=== PATIENT | female | born 1955 | race Two or more races ===

== ENCOUNTER → 2016-06-25 | Outpatient (CLI) | payer OTHER ==
--- NOTE | 2016-06-25 16:51 | DX ---
Left Foot Series 3 views weight-bearing History: Left foot pain for one day. Findings: Osseous structures are intact without fracture. Joint spaces are normal. Soft tissues are n ormal. There is a small plantar calcaneal spur. Impression: Small plantar calcaneal spur. Otherwise, normal foot series.
== END ==
LOC: BMCIMAGING 16:10
PROVIDERS: ATTEND Podiatrist Foot & Ankle Surgery
DX: M77.32 Calcaneal spur, left foot (principal)

== ENCOUNTER 2016-07-10 04:34 | Inpatient (IN) | payer OTHER ==
--- NOTE | 2016-07-10 04:47 | EDPHY ---
H & P Stated Complaint: LEFT LEG PAIN, DENIES TRAUMA HPI/ROS: HPI CHIEF COMPLAINT: Left ankle pain, severe HISTORY OF PRESENT ILLNESS: This patient very pleasant 61-year-old female denies any significant medical history specifically denies being diabetic, she presents to the emergency room with 10/10 left ankle pain and extreme pain with ankle movement. She tells me she has recently seen by her emergency operator Godwin Riley. she had an MRI of her ankle with a fluid collection in her anterior ankle she is placed on Augmentin the past 2 days for possible infection. She does tell me that the swelling of her foot has improved however still has exquisite left ankle tenderness which is not improved with her hydrocodone. She denies fever. She tells me she is unable to ambulate, and with any range of motion of her left ankle she has severe pain. Past Medical History: Denies significant medical history Past Surgical History: denies significant surgical history Social History: Denies use of drugs alcohol tobacco products Family History: Noncontributory ROS REVIEW OF SYSTEMS: A comprehensive 10 point review of systems is otherwise negative aside from elements mentioned in the history of present illness. Exam Constitutional triage nursing summary reviewed, vital signs reviewed, awake/ alert. Eyes normal conjunctivae and sclera, EOMI, PERRLA. HENT normal inspection, atraumatic, moist mucus membranes, no epistaxis, neck supple/ no meningismus, no raccoon eyes. Respiratory clear to auscultation bilaterally, normal breath sounds, no respiratory distress, no wheezing. Cardiovascular rate normal, regular rhythm, no murmur, no edema, distal pulses normal. Gastrointestinal soft, non-tender, no rebound, no guarding, normal bowel sounds, no distension, no pulsatile mass. Genitourinary no CVA tenderness. Musculoskeletal left lower extremity: ankle: exquisite tenderness, no crepitus, there is tenderness to palpation of the medial and lateral malleolus is also tenderness in the space between the Achilles and the lateral and medial malleolus. She is tender with light palpation. She is neurovascularly intact good cap refill, good pulse, good sensation. no midline vertebral tenderness, full range of motion, no calf swelling, no tenderness of extremities, no meningismus, good pulses, neurovascularly intact. Skin pink, warm, & dry, no rash, skin atraumatic. Neurologic awake, alert and oriented x 3, AAOx3, moves all 4 extremities equally, motor intact, sensory intact, CN II-XII intact, normal cerebellar, normal vision, normal speech. Psychiatric normal mood/affect. Heme/Lymph/Immune no lymphadenopathy. Differential Diagnosis: Includes but is not limited to in a particular order left ankle infection, joint infection, septic arthritis, osteomyelitis, fracture Medical Decision Making: This patient here in the emergency room had an IV established be medicated with IV pain medicine will check blood work including a CBC and inflammatory markers, I did speak with Dr. Warner who is her emergency operator requests that we repeat her MRI give her broad-spectrum antibiotics including IV vancomycin and admit her to the hospital where he will see her. He requested to be admitted to the hospitalist service. He also requested that Infectious Disease sees her. Re-evaluation: 0509: At this time I spoke with the hospitalist service Dr. Hunt agrees to admit this patient. The MRI has been ordered. Source: Patient - Personal History Current Tetanus/Diphtheria Vaccine: Yes Current Tetanus Diphtheria and Acellular Pertussis (TDAP): Yes - Medical/Surgical History Hx Asthma: No Hx Chronic Respiratory Disease: No Hx Diabetes: No Hx Cardiac Disease: No Hx Renal Disease: No Hx Cirrhosis: No Hx Alcoholism: No Hx HIV/AIDS: No Hx Splenectomy or Spleen Trauma: No Other PMH: C SECTION, CEE, BACK INJURY - Social History Smoking Status: Never smoked Constitutional: Initial Vital Signs Temperature (C) 36.6 C 07/10/16 04:36 Heart Rate 91 07/10/16 04:36 Respiratory Rate 18 07/10/16 04:36 Blood Pressure 117/82 H 07/10/16 04:36 O2 Sat (%) 96 07/10/16 04:36 O2 Delivery Mode Room Air Allergies/Adverse Reactions: moxifloxacin HCl [From Avelox] Allergy (Verified 07/10/16 04:40) ITCHING,CHEST TIGHTNESS Sulfa (Sulfonamide Antibiotics) [Sulfa(Sulfonamide Antibiotics)] Allergy ( Verified 07/10/16 04:40) ITCH Home Medications: Medication Instructions Recorded Ibuprofen [Motrin 200 mg (OTC)] 600 - 800 mg PO DAILY PRN 06/06/12 Loperamide HCl [Imodium 2 mg (OTC)] 2 mg PO DAILY PRN 06/06/12 Amoxicillin/Clavulanate Pot 875 mg PO BID 07/10/16 [Augmentin 875 MG TAB (*)] Bisacodyl [Dulcolax] 5 mg PO DAILY PRN 07/10/16 Calcium Carb W/Vit D [Calcium Carb 1,000 mg PO DAILY 07/10/16 W/Vit D 500/200 (*)] Estrogen,Con/M-Progest Acet 1 each PO DAILY 07/10/16 [Prempro 0.3 mg-1.5 mg Tablet] Hydrocodone/Acetaminophen [[place] 1 tab PO Q6 PRN 07/10/16 5/325 (*)] Sulindac 150 mg PO BIDMEAL 07/10/16 buPROPion XL [Wellbutrin Xl] 300 mg PO DAILY 07/10/16 Medical Decision Making - Data Points Medications Given: Discontinued Medications Sodium Chloride (Ns) 1,000 mls @ 0 mls/hr IV ONCE ONE PRN Reason: Wide Open Stop: 07/10/16 04:58 Last Admin: 07/10/16 05:15 Dose: 1,000 mls Vancomycin/Sodium Chloride (Vancomycin 1 Gm (Premix)) 250 mls @ 250 mls/hr IV EDNOW ONE PRN Reason: Protocol Stop: 07/10/16 06:01 Last Admin: 07/10/16 05:53 Dose: 250 mls Morphine Sulfate (Morphine) 6 mg IVP EDNOW ONE Stop: 07/10/16 04:58 Last Admin: 07/10/16 05:15 Dose: 6 mg Ondansetron HCl (Zofran) 4 mg IVP EDNOW ONE Stop: 07/10/16 04:58 Last Admin: 07/10/16 05:15 Dose: 4 mg Departure - Departure Disposition: [facility] Acute Clinical Impression: Left ankle effusion, Bone infection, ankle/foot Condition: Fair
[2016-07-10] MEDS ORDERED: ONDANSETRON 4 MG/2 ML VIAL IVP ONE (04:57)
[2016-07-10] MEDS ORDERED: NS 1,000 ML IV ONE (04:57)
[2016-07-10] MEDS ORDERED: VANCOMYCIN HCL/NORMAL SALINE 250 ML IV ONE (05:02)
[2016-07-10] MEDS ORDERED: ONDANSETRON 4 MG/2 ML VIAL IVP PRN (05:07)
[2016-07-10] MEDS ORDERED: ONDANSETRON DISINTEGRATING 4 MG TAB PO PRN (05:07)
[2016-07-10] MEDS ORDERED: ACETAMINOPHEN 325 MG TAB PO PRN (05:07)
[2016-07-10] MEDS ORDERED: NS 1,000 ML IV SCH (05:15)
[2016-07-10 05:23] LABS: % IMMATURE GRANULYOCYTES 0.4 % (0.0-1.1); ABSOLUTE IMMATURE GRANULOCYTES 0.05 10^3/uL (0.00-0.10); ADD DIFF? NO; ADD MORPH? NO; ADD SCAN? NO; ATYPICAL LYMPHOCYTE FLAG 0 (0-99); FRAGMENT RBC FLAG 0 (0-99); HEMATOCRIT 37.8 % (38.0-47.0); HEMOGLOBIN 12.6 g/dL (12.6-16.3); LEFT SHIFT FLG 0 (0-99); LIPEMIA HEMOLYSIS FLAG 80 (0-99); MEAN CELL HEMOGLOBIN 29.9 pg (27.9-34.1); MEAN CELL HEMOGLOBIN CONCENTR. 33.3 g/dL (32.4-36.7); MEAN CELL VOLUME 89.6 fL (81.5-99.8); MEAN PLATELET VOLUME 9.9 fL (8.7-11.7); PLATELET CLUMPS FLAG 0 (0-99); PLATELET COUNT 432 10^3/uL (150-400); RED BLOOD CELL COUNT 4.22 10^6/uL (4.18-5.33); RED CELL DISTRIBUTION WIDTH 13.6 % (11.5-15.2)
[2016-07-10 05:37] LABS: ANION GAP 13 mEq/L (8-16); C-REACTIVE PROTEIN 43.4 mg/L (<10.0); CALCIUM 9.1 mg/dL (8.5-10.4); CARBON DIOXIDE 24 mEq/l (22-31); CHLORIDE 103 mEq/L (97-110); CREATININE 0.8 mg/dL (0.6-1.0); GLOMERULAR FILTRATION RATE > 60; GLUCOSE 87 mg/dL (70-100); POTASSIUM 4.3 mEq/L (3.5-5.2); SODIUM 140 mEq/L (134-144)
[2016-07-10 05:52] LABS: SEDIMENTATION RATE 60 MM/HR (0-30)
--- NOTE | 2016-07-10 07:18 | GHP ---
[f rep st] HISTORY AND PHYSICAL DATE OF ADMISSION: 07/10/2016 CHIEF COMPLAINT: Left ankle pain. HISTORY OF PRESENT ILLNESS: A 61-year-old female with limited past medical history, who developed le ft ankle pain on 06/25/2016. Patient sought out care with Dr. Warner in the outpatient setting a nd had ultimate MRI imaging of her ankle that showed what the patient describes as navicular fracture . Patient had increasing pain and was initiated by the physician on antibiotics at the time for conc erns of possible septic arthritis. Patient is presenting this evening with uncontrollable pain and i nability to ambulate. Patient denies any subjective fevers or chills. Has been ambulating using the assistive crutching device or scooter. Patient denies any vision changes, nausea, vomiting, chest p ain, shortness of breath, palpitations. Denies any cellulitic changes of her skin, any changes in he r bowel habits related to the 2 doses of Augmentin she has taken in the outpatient setting. PAST MEDICAL HISTORY: 1. Recent left ankle pain with suspected septic arthritis. 2. Postmenopausal. SOCIAL HISTORY: Negative for tobacco, alcohol or illicit drugs. FAMILY HISTORY: Positive for pancreatic cancer in mother and leukemia in her father. REVIEW OF SYSTEMS: A 10-point review of systems is negative with the exception of that reported in t he HPI. PHYSICAL EXAMINATION: VITAL SIGNS: Blood pressure 116/84, heart rate 87, respiratory rate 16, 95% o n room air at 37.1. GENERAL: This is a very pleasant, healthy-appearing female, in mild distress. HEENT: Notable for moist mucous membranes. Eye exam is negative for any icterus. CARDIAC: Regular rate and rhythm. No murmurs, gallops, or rubs. PULMONARY: Good respiratory effort. Clear to auscultation bilaterally. GASTROINTESTINAL: Positive bowel sounds. ABDOMEN: Soft and nontender . MUSCULOSKELETAL: Patient does have swelling of her left ankle posterior to her malleolus on both sides and is exquisitely tender to palpation. No streaking or erythema is noted on skin exam. NEURO LOGIC: She is alert and oriented x3. PSYCHIATRIC: She is tearful and scared. DATA: White count 13.44, hematocrit is 37.8, platelet count of 432. Creatinine 0.8. Ankle x-ray wh ich I personally reviewed and interpreted, shows no acute osseous abnormality. ASSESSMENT AND PLAN: This is a 61-year-old female presenting with left ankle pain. 1. Suspected acute septic joint of the left ankle. Patient has been followed in the outpatient sett ing. We have ordered MRI imaging of her this morning. Her outpatient transplant registered nurse has been consulted and will be evaluating her in the hospital for thoracentesis. Empiric antibiotics with IV vancomycin have been initiated in addition to IV pain medications and IV nausea medication. 2. Prophylaxis. Holding Lovenox until patient has had her arthrocentesis and evaluation by surgery in case she needs to go the operating room. Additionally diet making her n.p.o. DISPOSITION: I expect greater than 2 midnights as patient is requiring IV pain medications, IV antib iotics and surgical evaluation. I discussed the case with the emergency room physician. Patient omaira l be triaged to the medical-surgical floor for care. /[id number]/MODL
--- NOTE | 2016-07-10 08:24 | SOAPPROG ---
SOAP Progress Note Assessment/Plan: Assessment: septic arthritis, left ankle Plan:With continued signs of infection clinically and radiographically, along with increasing white count, I will take patient to OR this morning to flush out joint and obtain cultures/gram stain to start IV abx tx. ID has been consulted. Will follow as both in- and outpatient. Discussed risks/benefits/alternatives to surgery at bedside with patient. Patient understands and agrees to treatment. Answered questions. 07/10/16 08:21 Subjective: Patient doing well with no constitutional symptoms. Relates pain 11/27. Seen at bedside this morning. Patient is NPO. Objective: Vital Signs Temp Pulse Resp BP Pulse Ox 37.2 C 87 16 115/73 95 07/10/16 08:12 07/10/16 08:12 07/10/16 08:12 07/10/16 08:12 07/10/16 08:12 Laboratory Results 07/10/16 05:10 07/10/16 05:10 07/09/16 07/10/16 07/11/16 05:59 05:59 05:59 Intake Total 1000 Balance 1000 red, warm with increased turgor to left ankle; no ascending cellulitis; no open lesions; exquisite pain to palp, left ankle medial and lateral ankle - Pending Discharge Pending Discharge Within 24 Hours: No ICD10 Worksheet Patient Problems: Problems Problem Status Diagnosed Bone infection, ankle/foot Acute Left ankle effusion Acute
--- NOTE | 2016-07-10 08:41 | DX ---
Left ankle 3 views HISTORY: Lateral left ankle pain. COMPARISON: Left foot June 25, 2016. FINDINGS: No fracture is identified. Alignment is normal. There is subtle lucency in the medial aspec t of the talus with normal contour of the overlying talar dome. Diffuse soft tissue swelling is prese nt. There is a moderate joint effusion. Impression: 1. No fracture identified. 2. Nonspecific lucency in the medial talar dome. The patient subsequently underwent MRI, which is rep orted separately. 3. Joint effusion.
--- NOTE | 2016-07-10 10:33 | GCON ---
[f rep st] CONSULTATION INFECTIOUS DISEASE CONSULTATION DATE OF CONSULTATION: 07/10/2016 REFERRING PHYSICIAN: Godwin Warner DPM REASON FOR CONSULTATION: Possible septic arthritis of the left ankle. HISTORY OF PRESENT ILLNESS: Patient is a 61-year-old female without significant past medical history who developed left ankle pain dating back to June 25, 2016. There was no preceding traumatic inju ry. The pain was significant enough that the patient had difficulty with weightbearing and was havin g to ambulate with crutches. She was seen as an outpatient by Dr. Warner and treated conservativ naomy with nonsteroidal agents, which did lead to some improvement but not full resolution. The patien t did not have any fever, although did describe infrequent chills but no rigors. She has had some mi ld night sweats. She was seen in the emergency department in [place] early in her course due to sig nificant pain, at which point in time continued conservative management was undertaken. She describe s having a uric acid level performed then that was normal. She does not have any preceding history o f gout or pseudogout. The patient denies having any recent dental work or dental problems. She has not had any issues with skin and soft tissue infection. She does describe having swelling of both ma lleolar regions. She has had some faint overlying erythema. Two days ago, she was started on Augmen tin in the event any infectious component was present. This has not lead to any significant improvem ent. Overnight, her pain became unbearable and she presented to the emergency department for further care. MRI of the ankle was performed which shows talar edema and a joint effusion. Cortical margin s were intact without inflammatory change. Laboratory testing has shown an initial white blood cell count on 07/07/2016 of 11.9, which on repeat on 07/10/2016 was 13.4. Inflammatory markers have also been elevated. Rheumatologic screening tests have been negative to date. The patient has not had an y preceding diarrheal illness or respiratory infection. The patient was started empirically on vanco mycin at the time of presentation. Blood cultures have been obtained. The patient is going to under go incision and drainage later this morning for further assessment. Given the above findings, I am n ow asked to assist in her ongoing management. PAST MEDICAL HISTORY: Irritable bowel syndrome. PAST SURGICAL HISTORY: , oophorectomy. CURRENT MEDICATIONS: Vancomycin 1 g IV x1, [place] for pain, morphine for pain. Prior to admission, w as also receiving Augmentin and sulindac. ALLERGIES: Moxifloxacin, associated with chest tightness; sulfonamides, associated with hives. SOCIAL HISTORY: Patient quit smoking many years ago. No alcohol or drug use. 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 No recent travel. [facility]. FAMILY HISTORY: Pancreatic cancer and leukemia. REVIEW OF SYSTEMS: Outside of that noted in the HPI, the remainder of a 10-system review is unremark able. PHYSICAL EXAMINATION: VITAL SIGNS: Temperature 37.2, heart rate 87, respiratory rate 16, blood pres sure 115/73, oxygen saturation 95% on room air. GENERAL: Patient is well nourished, well developed, in moderate distress due to pain. She appears nontoxic. HEENT: There is no scleral icterus, conju nctival injection, or conjunctival petechiae. Oropharynx is clear without lesions. Dentition is in fair repair. There is no nasal discharge. There is no tenderness over the frontal, maxillary, or ma stoid area. NECK: Supple without palpable lymphadenopathy or thyromegaly. CHEST: Clear to auscult ation bilaterally without adventitious sounds. Respiratory effort is normal. CARDIOVASCULAR: Regul ar rate and rhythm without murmurs, gallops, or rubs. ABDOMEN: Soft, nontender, nondistended. Ther e is no palpable organomegaly. Bowel sounds are present. MUSCULOSKELETAL: The left ankle shows martha ma of both malleolar regions. There is faint overlying erythema. There is warmth and exquisite tend erness to palpation or with movement of the joint. These findings do not extend into the lower leg o r thigh. LYMPHATIC: There are no cervical or supraclavicular nodes. There are no inguinal nodes on the left or areas of lymphangitis. NEUROLOGIC: Patient is alert and interacts appropriately with e xaminer. Cranial nerves 2-12 are grossly intact. Sensation is grossly intact. Muscle tone and bulk are normal. SKIN: No rashes are present. No stigmata of endocarditis. See ankle exam for additio nal details. LABORATORY DATA: White blood cell count 13.4, hematocrit 37.8, platelets 432, neutrophils 72%, lymph ocytes 20%. ESR 60. Serum creatinine 0.8. C-reactive protein 43.4. Rheumatoid factor and JEFFREY scre en are negative; HLA-B27 is pending. Blood cultures x2 sets are pending. MRI of the ankle as outlined above, which was reviewed with the radiologist this morning. IMPRESSION: Left ankle inflammatory arthropathy: Primary differential diagnosis is septic arthritis versus crystalline arthropathy. If this represents septic arthritis, transient bacteremia with seed ing of joint would be most likely etiology with Staphylococcus aureus or beta-hemolytic streptococci or other streptococcal species most likely. Crystalline arthropathy is a consideration. With both g out and pseudogout possible and a normal uric acid, would not rule out gout. Other possibility would be reactive arthritis, but there are no specific preceding upper respiratory infections or gastroent eritis. RECOMMENDATIONS: 1. Await further synovial fluid analysis, which will be obtained under anesthesia at time of anticip ated arthroscopy. 2. Agree with plans for incision and drainage of synovial fluid suggestive of septic arthritis. 3. Hold vancomycin pending synovial fluid/operative findings. 4. Send synovial fluid/tissue for routine culture, AFB, and fungal cultures. 5. Crystalline analysis of synovial fluid. Thank you for this consultation. We will continue to follow the patient with you. /[id number]/MODL
[2016-07-10] MEDS ORDERED: LIDOCAINE 2% 5 ML SDV ONE (10:54)
[2016-07-10] MEDS ORDERED: BUPIVACAINE 0.5% 30 ML SDV ONE (10:54)
[2016-07-10] MEDS ORDERED: BUPIVACAINE/EPI 0.25% 30 ML SDV ONE (10:54)
[2016-07-10] MEDS ORDERED: MIDAZOLAM 2 MG/2 ML VIAL ONE (12:12)
[2016-07-10] MEDS ORDERED: ONDANSETRON 4 MG/2 ML VIAL ONE (12:17)
[2016-07-10] MEDS ORDERED: fentaNYL 100 MCG/2 ML INJ ONE ×3 (12:17→14:15)
[2016-07-10] MEDS ORDERED: DEXAMETHASONE 4 MG/ML VIAL ONE (12:17)
[2016-07-10] MEDS ORDERED: LIDOCAINE 2% 100 MG/5 ML SYR IVP ONE (12:17)
[2016-07-10] MEDS ORDERED: LIDOCAINE 2% JELLY 5 ML TUBE ONE (12:17)
[2016-07-10] MEDS ORDERED: PROPOFOL/EMULSION 500 MG/50 ML BOTTLE IV ONE (12:17)
--- NOTE | 2016-07-10 12:22 | MR ---
MRI of the left ankle, without contrast. HISTORY: Possible infection. Ankle swelling. TECHNIQUE: Axial, sagittal, and coronal MR sequences of the left ankle are performed. FINDINGS: There is a focal osteochondral lesion involving the medial talar dome. This lesion measures 5 mm in size and is associated with extensive subcortical bone marrow edema. There is a large ankle joint effusion. Nonspecific bone marrow edema involves the tibial plafond and the lateral malleolus. The deltoid ligament is intact as is the spring ligament. Anterior and posterior syndesmotic ligament s are intact as are anterior and posterior talofibular ligaments. The extensor tendons are intact. Pe roneal tendons are intact. Achilles tendon and plantar fascia appear intact. Subtalar joint is normal . IMPRESSION: 1. Osteochondral lesion involving the medial talar dome, associated with subchondral bone marrow jorge a and a large left ankle joint effusion. There is less prominent bone marrow edema in the distal fibu la and the tibial plafond. Imaging features are nonspecific. If there is clinical concern for possibl e septic arthritis, ultrasound-guided left ankle joint aspiration is recommended. Preliminary results discussed with the patient's nurse Bette by Dr. Modi at 8:54 AM.
[2016-07-10] MEDS ORDERED: LOPERAMIDE HCL 2 MG CAP PO PRN (13:17)
[2016-07-10] MEDS ORDERED: BISACODYL 5 MG EC TAB PO PRN (13:17)
[2016-07-10] MEDS ORDERED: IBUPROFEN 200 MG TAB PO PRN (13:17)
--- NOTE | 2016-07-10 13:21 | HOSPPROG ---
Hospitalist Progress Note Assessment/Plan: 61-y/o F with PMH L ankle pain starting 06/25/16. Seen by Dr. Warner and had MRI that showed navicular fx. With increasing pain, septic arthritis was of concern. #. suspected septic arthritis: s/p I&D with Dr. Timmy Buckley has also seen and raises concern that this may be pseudogout or gout await results of aspirate analysis #. Pain: mild-moderate currently continue [place] and other home meds #. Depression: home meds continued #. DVT ppx: start Enoxaparin today Subjective: Reports some ankle pain currently. No other complaints. Objective: Vital Signs Temp Pulse Resp BP Pulse Ox 98.9 F 87 16 115/73 95 07/10/16 08:12 07/10/16 08:12 07/10/16 08:12 07/10/16 08:12 07/10/16 08:12 Laboratory Results 07/10/16 05:10 07/10/16 05:10 07/09/16 07/10/16 07/11/16 05:59 05:59 05:59 Intake Total 1000 Balance 1000 - Physical Exam Constitutional: no apparent distress, appears nourished Eyes: anicteric sclera Ears, Nose, Mouth, Throat: moist mucous membranes, hearing normal Cardiovascular: regular rate and rhythym, no murmur, rub, or gallop Respiratory: no respiratory distress, no rales or rhonchi Gastrointestinal: normoactive bowel sounds, soft, non-tender abdomen Neurologic: AAOx3 ICD10 Worksheet Patient Problems: Problems Problem Status Diagnosed Bone infection, ankle/foot Acute Left ankle effusion Acute
[2016-07-10] MEDS: HYDROCODONE/APAP 5/325 TAB PO PRN (15:29)
--- NOTE | 2016-07-10 15:49 | GOP ---
[f rep st] OPERATIVE REPORT DATE OF OPERATION: 07/10/2016 SURGEON: Godwin Warner DPM POLITICAL SCIENCE FACULTY MEMBER: None. ANESTHESIA: General. PREOPERATIVE DIAGNOSIS: Septic arthritis, left ankle. POSTOPERATIVE DIAGNOSIS: Septic arthritis, left ankle. PROCEDURE PERFORMED: 1. Left ankle arthroscopy with synovectomy. 2. Incision and drainage of the left ankle joint. FINDINGS: SPECIMENS: Culture swabs for aerobic, anaerobic and fungal were sent. Aspiration of the joint fluid was also sent for cytology and then a soft tissue specimen was sent for microbiology. ESTIMATED BLOOD LOSS: Scant. INDICATIONS: The patient is an otherwise healthy 61-year-old woman who presented to my office some 1 0 days ago for pain in her left ankle. The patient underwent conservative care for a possible tendon itis as the patient did not have any constitutional symptoms. The patient continued not to have any constitutional symptoms over this timeframe, but the pain continued to increase specifically over the last 24-48 hours. The patient was admitted through the emergency department for pain to the left an kle with any pressure at all. The patient's white cell count was elevated 3 days ago to 11,000. The patient was started on oral antibiotics. This did not seem to resolve any of the patient's pain in the left ankle. Today's white blood cell count was at 13,000. MRI confirmed further effusion of the left ankle along with some bone marrow edema in the talus. The patient understands the risks, benef its and alternatives to the procedure and wishes to proceed. DESCRIPTION OF PROCEDURE: Under mild sedation, the patient was brought into the operating room and p laced on the operating table in supine position. Following induction of general anesthesia, a nonste rile pneumatic thigh tourniquet was placed about the patient's well-padded left thigh. The patient's left leg was placed in a thigh olivera. A regional block of 24 mL of 0.5% Marcaine plain was infiltr ated about the patient's left ankle joint. The foot, ankle and lower leg were then scrubbed, prepped and draped in the usual aseptic manner. The patient's left ankle was placed in an ankle distractor and the ankle was distracted roughly 3-4 mm. Prior to incision, aspiration of the patient's left ank le joint was obtained and roughly 15 mL of a purulent fluid was aspirated. This was sent for cytolog y examination. At this point the tourniquet was inflated to 250 mmHg with exsanguination consisting of elevation of the patient's left foot. At this time, an 11 blade was used to make a percutaneous s tab incision to the anteromedial portal of the patient's left ankle. A hemostat was used to puncture the capsule and a blunt obturator and cannula was placed. Immediately upon putting the camera in, t here was a marked amount of redundancy in the anterior capsule as well as loose fragments of synovial tissue. An anterolateral portal was then obtained and was made in the same fashion and a shaver was introduced. During the arthroscopy, roughly 1700 mL of sterile normal saline was flushed through th e ankle joint. Following the extensive debridement of the synovial tissue and any loose fragments of soft tissue, there appeared to be an osteochondral lesion under the cartilage. The cartilage was so ft, but did appear to be intact. There was no loose flap of cartilage on the medial central portion of the patient's left talus. I hesitated to remove and/or expose any further bone to the infection w ithin the joint. I decided to leave the osteochondral defect in place unaltered. The remaining cart ilage to the tibial plafond as well as the talar dome appeared to be white, glistening and of good in tegrity. I could not see any blatant areas of osteoarthritis due to infection or any exposed subchon dral bone. The instrumentation was removed from the ankle joint and the skin was closed with a simpl e, interrupted horizontal mattress suture. The wounds were then dressed with Xeroform and a sterile compressive dressing consisting of 4 x 4s an d Marta. An Fred wrap was also applied. The tourniquet was dropped and a prompt hyperemic response w as noted to all digits of the left foot. The patient tolerated the procedure and anesthesia well. She was transferred to the recovery room wi th vital signs stable and vascular status intact to all digits of the left foot. Following a period of postoperative monitoring, the patient will be discharged back to the floor for further medical con sultation including infectious disease and pain management. I will continue to follow the patient as an inpatient as well as once she is discharged with her IV antibiotics from Infectious Disease. HEMOSTASIS: Pneumatic thigh tourniquet at 250 mmHg x39 minutes. MATERIALS: None. INJECTABLES: 24 mL of 0.5% Marcaine plain and a left ankle regional block. COMPLICATIONS: None. /[id number]/MODL
[2016-07-10] MEDS: ENOXAPARIN 40 MG/0.4 ML SYR SC SCH (16:49)
[2016-07-10] MEDS ORDERED: SULINDAC 150 MG PO SCH (18:00)
[2016-07-10] MEDS ORDERED: VANCOMYCIN HCL/NORMAL SALINE 250 ML IV SCH (18:00)
[2016-07-11] MEDS: HYDROCODONE/APAP 5/325 TAB PO PRN ×4 (03:26→17:55)
[2016-07-11] MEDS: VANCOMYCIN 1 GM in NS 250 ML IV SCH ×2 (05:22→17:47)
--- NOTE | 2016-07-11 07:13 | SOAPPROG ---
SOAP Progress Note Assessment/Plan: Assessment: septic arthritis, left ankle Plan:With continued signs of infection clinically and radiographically, along with increasing white count, I will take patient to OR this morning to flush out joint and obtain cultures/gram stain to start IV abx tx. ID has been consulted. Will follow as both in- and outpatient. Discussed risks/benefits/alternatives to surgery at bedside with patient. Patient understands and agrees to treatment. Answered questions. 07/10/16 08:21 07/11/16 07:10 Pending results of tissue and swab cx, I do not see this patient staying more than 24 hours. She is to continue NWB with knee scooter or crutches while ankle pain is resolving and infection is ruled out/confirmed. Keep dressing clean/dry/intact. I will change on 07/14/16 in office. Continue pain medication and/or NSAIDs as needed for pain. Ice and elevate as instructed. Answered questions. Subjective: Doing well. Bandage too tight. Pain 6/10, but controlled with pain medications. Denies f/c/n/v. Objective: Vital Signs Temp Pulse Resp BP Pulse Ox 37.0 C 74 16 99/66 L 96 07/11/16 03:22 07/11/16 03:22 07/11/16 03:22 07/11/16 03:22 07/11/16 03:22 Microbiology 07/10/16 12:50 Gram Stain - Final Ankle - Tissue 07/10/16 12:52 Gram Stain - Final Ankle - Eswab Laboratory Results 07/10/16 05:10 07/10/16 05:10 07/10/16 07/11/16 07/12/16 05:59 05:59 05:59 Intake Total 1000 1600 Output Total 1515 Balance 1000 85 incision sites: sutures intact; no ASOI; no cellulitis; no active drainage; edema is markedly better from admission; no ecchymosis - Pending Discharge Pending Discharge Within 24 Hours: Yes Pending Discharge Date: 07/12/16 Pending Discharge Time: 11:00 ICD10 Worksheet Patient Problems: Problems Problem Status Diagnosed Bone infection, ankle/foot Acute Left ankle effusion Acute
[2016-07-11] MEDS: ENOXAPARIN 40 MG/0.4 ML SYR SC SCH (08:43)
[2016-07-11] MEDS: buPROPion XL 150 MG TAB PO SCH (08:43)
[2016-07-11] MEDS: ESTROGEN CON PO SCH (08:57)
[2016-07-11] MEDS: M PROGEST ACET PO SCH (08:57)
[2016-07-11] MEDS ORDERED: M PROGEST ACET PO SCH (09:00)
[2016-07-11] MEDS ORDERED: [UNRECOGNIZED DRUG - OTHER] PO SCH (09:00)
[2016-07-11] MEDS ORDERED: ESTROGEN CON PO SCH (09:00)
[2016-07-11] MEDS ORDERED: ALTEPLASE 2 MG VIAL IVP PRN (13:44)
--- NOTE | 2016-07-11 13:50 | PCMIDPN ---
Assessment/Plan: Assessment/Plan: * Septic arthritis left ankle and possible talar osteomyelitis due to MSSA status post incision and drainage: Will treat as if osteomyelitis present given edema and defect noted in talus. In the absence of trauma or preceding skin infection, suspect patient had transient staphylococcal bacteremia at some point and subsequently seeded joint. Blood cultures remain negative. Will obtain echocardiogram to ensure no evidence of endocarditis. Await susceptibility profile on Staphylococcus aureus. Place PICC line tomorrow - risks and benefits of PICC line discussed with patient. Findings and plan discussed with patient and family. 07/11/16 13:47 07/11/16 13:50 Subjective: Patient complains of left ankle pain. Operative findings noted. Objective: Vital Signs Temp Pulse Resp BP Pulse Ox 36.8 C 77 17 106/67 94 07/11/16 11:19 07/11/16 11:19 07/11/16 11:19 07/11/16 11:19 07/11/16 11:19 Microbiology 07/10/16 12:52 Gram Stain - Final Ankle - Eswab 07/10/16 12:50 Gram Stain - Final Ankle - Tissue Laboratory Results 07/10/16 05:10 07/10/16 05:10 07/10/16 07/11/16 07/12/16 05:59 05:59 05:59 Intake Total 1000 1600 Output Total 1515 Balance 1000 85 ESR 60 MM/HR (0-30) H 07/10/16 05:10 C-Reactive Protein 43.4 mg/L (<10.0) H 07/10/16 05:10 Vancomycin # 2 Blood cultures no growth Left ankle with growth of rare Staphylococcus aureus - Physical Exam General Appearance: alert, no apparent distress EENT: pharynx normal, No conjunctival petechiae Respiratory: lungs clear, No respiratory distress Cardiac/Chest: regular rate, rhythm, No systolic murmur Extremities: inflammation (Left ankle dressed postoperatively) Abdomen: non-tender, No distended ICD10 Worksheet Patient Problems: Problems Problem Status Diagnosed Bone infection, ankle/foot Acute Left ankle effusion Acute
[2016-07-11] MEDS ORDERED: POLYETHYLENE GLYCOL 3350 17 GM PKT PO PRN (14:25)
[2016-07-11] MEDS ORDERED: LACTULOSE 20 GM/30 ML UDCUP PO PRN (14:25)
[2016-07-11] MEDS ORDERED: MAGNESIUM HYDROXIDE 30 ML UDCUP PO PRN (14:25)
--- NOTE | 2016-07-11 14:28 | HOSPPROG ---
Hospitalist Progress Note Assessment/Plan: 61-y/o F with PMH L ankle pain starting 06/25/16. Seen by Dr. Warner and had MRI that showed navicular fx. With increasing pain, septic arthritis was of concern. #. suspected septic arthritis: s/p I&D with S. aureus on aspirate await sensitivity on IV Vanco for now #. Pain: mild-moderate currently continue [place] and other home meds #. Depression: home meds continued #. DVT ppx: Enoxaprin Subjective: Pt tearful at news that she will need 4-6 weeks of antibiotics. Reports some foot pain currently. Objective: Vital Signs Temp Pulse Resp BP Pulse Ox 98.3 F 77 17 106/67 94 07/11/16 11:19 07/11/16 11:19 07/11/16 11:19 07/11/16 11:19 07/11/16 11:19 Microbiology 07/10/16 12:52 Gram Stain - Final Ankle - Eswab 07/10/16 12:50 Gram Stain - Final Ankle - Tissue Laboratory Results 07/10/16 05:10 07/10/16 07/11/16 07/12/16 05:59 05:59 05:59 Intake Total 1000 1600 Output Total 1515 Balance 1000 85 - Physical Exam Constitutional: appears nourished, not in pain Eyes: PERRL Ears, Nose, Mouth, Throat: moist mucous membranes, hearing normal Cardiovascular: regular rate and rhythym, no murmur, rub, or gallop Respiratory: no respiratory distress, no rales or rhonchi ICD10 Worksheet Patient Problems: Problems Problem Status Diagnosed Bone infection, ankle/foot Acute Left ankle effusion Acute
[2016-07-11 14:37] LABS: ANION GAP 9 mEq/L (8-16); CALCIUM 8.8 mg/dL (8.5-10.4); CARBON DIOXIDE 31 mEq/l (22-31); CHLORIDE 102 mEq/L (97-110); CREATININE 0.7 mg/dL (0.6-1.0); GLOMERULAR FILTRATION RATE > 60; GLUCOSE 94 mg/dL (70-100); POTASSIUM 4.3 mEq/L (3.5-5.2); SODIUM 142 mEq/L (134-144)
--- NOTE | 2016-07-11 16:14 | IR ---
Imaging-Guided Peripherally Inserted Central Catheter History: Septic arthritis of the left ankle.. Prophylactic Antibiotic: Cefazolin was not ordered and administered for antimicrobial prophylaxis be cause it was not medically necessary for this procedure. VTE Prophylaxis: There is not an order for VTE prophylaxis to be given within 24 hours after procedu re end time because it was not medically necessary for this procedure. Crosscutting Measure: Patient's current list of medications including all known prescriptions, over- the-counters, herbals, and vitamin/mineral/dietary supplements are reviewed. Medications' name, dosa ge, frequency, and route of administration are confirmed. Technique: Following informed consent, the right arm was prepped and draped in sterile fashion. 1% Xy locaine was used for local anesthetic. All elements of maximal sterile barrier technique including cap, mask, sterile gown, sterile gloves, large sterile sheet, hand hygiene, and 2% chlorhexidine for cutaneous antisepsis, followed. Ultrasound evaluation of potential access site was performed. After successfully identifying a patent vessel, ultrasound guidance was used to puncture the vein. A permanent recording was created for the patient's record. Ultrasound transducer was placed in sterile sleeve and used for real-time imaging guidance over steri le gel to enter the basilic vein. 0.018 measuring wire was passed centrally under fluoroscopic contro l. A skin robert with scalpel blade was followed by removing the access needle. A 4 Tanzanian pee-away she ath was followed by a 4 Tanzanian single-lumen central catheter, trimmed to 36 cm length. The tip of t he catheter was positioned centrally and the guidewire removed. A single fluoroscopic spot image was obtained in inspiration. The hub of the catheter was fixed to the skin using a sterile StatLock adhes lynn device, and a sterile dressing was applied. The catheter was irrigated. Findings: The tip of the central catheter terminates at the junction of the superior vena cava and th e right atrium. Fluoroscopy: 0.1 minutes, 1 images Impression: 4 Tanzanian single lumen peripherally inserted central catheter is ready to use.
[2016-07-11] MEDS: SENNOSIDES/DOCUSATE SODIUM TAB PO SCH (19:38)
[2016-07-12] MEDS: HYDROCODONE/APAP 5/325 TAB PO PRN ×3 (00:14→18:43)
[2016-07-12] MEDS: VANCOMYCIN 1 GM in NS 250 ML IV SCH ×2 (05:41→18:44)
[2016-07-12 06:15] LABS: % IMMATURE GRANULYOCYTES 0.3 % (0.0-1.1); ABSOLUTE IMMATURE GRANULOCYTES 0.03 10^3/uL (0.00-0.10); ADD DIFF? NO; ADD MORPH? NO; ADD SCAN? NO; ATYPICAL LYMPHOCYTE FLAG 10 (0-99); FRAGMENT RBC FLAG 0 (0-99); HEMATOCRIT 33.9 % (38.0-47.0); HEMOGLOBIN 10.9 g/dL (12.6-16.3); LEFT SHIFT FLG 0 (0-99); LIPEMIA HEMOLYSIS FLAG 80 (0-99); MEAN CELL HEMOGLOBIN 29.2 pg (27.9-34.1); MEAN CELL HEMOGLOBIN CONCENTR. 32.2 g/dL (32.4-36.7); MEAN CELL VOLUME 90.9 fL (81.5-99.8); MEAN PLATELET VOLUME 10.4 fL (8.7-11.7); PLATELET CLUMPS FLAG 0 (0-99); PLATELET COUNT 392 10^3/uL (150-400); RED BLOOD CELL COUNT 3.73 10^6/uL (4.18-5.33); RED CELL DISTRIBUTION WIDTH 13.5 % (11.5-15.2)
[2016-07-12] MEDS: buPROPion XL 150 MG TAB PO SCH (08:41)
[2016-07-12] MEDS: SENNOSIDES/DOCUSATE SODIUM TAB PO SCH ×2 (08:41→21:32)
[2016-07-12] MEDS: M PROGEST ACET PO SCH (08:42)
[2016-07-12] MEDS: ESTROGEN CON PO SCH (08:42)
[2016-07-12] MEDS: ENOXAPARIN 40 MG/0.4 ML SYR SC SCH (08:43)
[2016-07-12] MEDS: GABAPENTIN 100 MG CAP PO SCH (16:16)
--- NOTE | 2016-07-12 16:48 | HOSPPROG ---
Hospitalist Progress Note Assessment/Plan: 61-y/o F with PMH L ankle pain starting 06/25/16. Seen by Dr. Warner and had MRI that showed navicular fx. With increasing pain, septic arthritis was of concern. This is my 1st encounter with the patient, chart reviewed. Patient discussed with Dr. Hartley of Infectious Disease. #. suspected septic arthritis: s/p I&D with S. aureus on aspirate await sensitivity on IV Vanco for now Continue until sensitivities #. Pain: mild-moderate currently continue [place] and other home meds Trial of Neurontin as pain sounds nerve in nature #. Depression: home meds continued #. DVT ppx: Enoxaprin # disposition Patient with PICC line Will require 4-6 weeks IV antibiotic therapy Await antibiotic choice per culture sensitivities Subjective: Eager to be discharged home. Complaints of ankle pain that is shooting in nature. No other specific issues other than pain concerns. Objective: Vital Signs Temp Pulse Resp BP Pulse Ox 37.1 C 83 16 128/79 H 96 07/12/16 15:35 07/12/16 15:35 07/12/16 15:35 07/12/16 15:35 07/12/16 15:35 Microbiology 07/10/16 12:52 Gram Stain - Final Ankle - Eswab 07/10/16 12:50 Gram Stain - Final Ankle - Tissue 07/10/16 12:50 Mycobacterial Smear (CHAD) - Final Ankle - Tissue Laboratory Results 07/12/16 05:40 07/11/16 14:14 07/11/16 07/12/16 07/13/16 05:59 05:59 05:59 Intake Total 1600 850 Output Total 1515 2000 1700 Balance 85 -1150 -1700 - Physical Exam Constitutional: no apparent distress, appears nourished, uncomfortable Eyes: PERRL, anicteric sclera, EOMI Ears, Nose, Mouth, Throat: moist mucous membranes, hearing normal, ears appear normal Cardiovascular: regular rate and rhythym, No JVD, No edema Respiratory: no respiratory distress, no rales or rhonchi, reduced air movement Gastrointestinal: No tenderness, No ascites, No guarding Skin: warm, normal color, No erythema Musculoskeletal: muscular tenderness, abnormal gait, generalized weakness Neurologic: AAOx3 Psychiatric: interacting appropriately, not anxious, not encephalopathic ICD10 Worksheet Patient Problems: Problems Problem Status Diagnosed Bone infection, ankle/foot Acute Left ankle effusion Acute
--- NOTE | 2016-07-12 17:10 | PCMIDPN ---
Assessment/Plan: Assessment: Septic arthritis left ankle secondary to MRSA. Will continue vancomycin empirically. Possibly consider switching over to daptomycin due to daily therapy and ease of logistics. Patient will need 6 weeks of therapy given Staph aureus and hematogenous etiology of the presentation. Currently unable to discharge secondary to pain control issues in the left ankle postoperatively. Plan: 1. Continue intravenous vancomycin. Check trough level. 2. Follow clinical course and most specifically pain in the left ankle. 07/12/16 18:05 Subjective: Patient is resting in her hospital bed. She is in a moderate degree of pain. Secondary to her left ankle. No further fevers or chills. She states that the pain is significantly different from admission. It is more consolidated to the ankle joint rather than running down her foot and upper leg. Objective: Vancomycin # 3 Vital Signs Temp Pulse Resp BP Pulse Ox 37.1 C 83 16 128/79 H 96 07/12/16 15:35 07/12/16 15:35 07/12/16 15:35 07/12/16 15:35 07/12/16 15:35 Microbiology 07/10/16 12:52 Gram Stain - Final Ankle - Eswab 07/10/16 12:50 Gram Stain - Final Ankle - Tissue 07/10/16 12:50 Mycobacterial Smear (CHAD) - Final Ankle - Tissue Laboratory Results 07/12/16 05:40 07/11/16 14:14 07/11/16 07/12/16 07/13/16 05:59 05:59 05:59 Intake Total 1600 850 Output Total 1515 2000 1700 Balance 85 -1150 -1700 ESR 60 MM/HR (0-30) H 07/10/16 05:10 C-Reactive Protein 43.4 mg/L (<10.0) H 07/10/16 05:10 - Physical Exam General Appearance: WD/WN, alert, apparent distress (Mild from pain), non-toxic Respiratory: lungs clear, normal breath sounds, No respiratory distress Cardiac/Chest: regular rate, rhythm, No tachycardia Skin: normal color, warm/dry, No rash Neuro/Psych: alert, normal mood/affect, oriented x 3 ICD10 Worksheet Patient Problems: Problems Problem Status Diagnosed Bone infection, ankle/foot Acute Left ankle effusion Acute
--- NOTE | 2016-07-12 18:09 | ECHO ---
[id number] + + [address] : : [place] [address] : : [phone] + + Adult Echocardiographic Report + ----+ :Name: ANDRE IZAGUIRRE NStudy Date: 07/12/2016 11:36 AM : : Hospital Admission Number: [id number] Location: 361: :: 1955 Gender: Female Height: 65 in : :Age: 61 yrs Race: HL,PTD,OTH Weight: 144 lb : :Reason For Study: Septic arthritis left ankle : :staphylococcus aureus/Eval for endocaritis BSA: 1.7 meters2 : + ----+ MMode/2D Measurements & Calculations IVSd: 0.74 cm LVIDd: 4.0 cm FS: 39.2 % Ao root diam: LVPWd: 0.64 cm LVIDs: 2.4 cm EDV(Teich): 2.4 cm 68.3 ml LA dimension: ESV(Teich): 3.4 cm 20.3 ml EF(Teich): 70.3 % LVLd ap4: 6.6 cm SV(MOD-sp4): EDV(MOD-sp4): 28.0 ml 37.0 ml LVLs ap4: 5.3 cm ESV(MOD-sp4): 9.0 ml EF(MOD-sp4): 75.7 % Normal Measurement Values: + + :LVIDd (3.5-5.7cm) IVSd (0.6-1.1cm) LVPWd (0.6-1.1cm) Aortic Root (2.0-3.7cm)Left Atrium (1.5-4.0cm): :LV Vol(d) (76-115ml) LV Vol(s) (29-48ml) Ejec Fraction (50-65%)PV Joss (0.6- 1.2m/s) TV Joss (0.4-1.0m/s) : :MV E Joss (0.8-1.0m/s)MV A Joss (0.3-1.0m/s)LVOT Joss (0.7-1.2m/s) Asc Ao Joss ( 0.9-1.8m/s) : + + Doppler Measurements & Calculations MV E max joss: 94.3 cm/sec Ao mean P.2 mmHg TR max joss: 253.8 cm/sec MV A max joss: 105.6 cm/sec Ao V2 mean: 96.4 cm/sec TR max P.8 mmHg MV E/A: 0.89 Ao V2 VTI: 29.2 cm RAP systole: 5.0 mmHg RVSP(TR): 30.8 mmHg Left Ventricle The left ventricle is normal in size. There is normal left ventricular wall thickness. Left ventricular systolic function is normal. There is Doppler evidence for diastolic dysfunction. Ejection Fraction = 65-70%. No regional wall motion abnormalities noted. Right Ventricle The right ventricle is normal in size and function. Atria The left atrial size is normal. Right atrial size is normal. The interatrial septum is intact with no evidence for an atrial septal defect. Mitral Valve The mitral valve is normal in structure and function. There is no evidence of mitral valve prolapse. There is no mitral valve stenosis. There is mild mitral regurgitation. Tricuspid Valve Normal tricuspid valve. There is trace to mild tricuspid regurgitation. Aortic Valve The aortic valve is trileaflet. The aortic valve opens well. There is no aortic stenosis. There is no aortic insufficiency. Pulmonic Valve The pulmonic valve is normal in structure and function. There is no pulmonic valvular regurgitation. Great Vessels The aortic root is normal size. Pericardium/Pleural There is no pericardial effusion. Conclusion A complete two-dimensional transthoracic echocardiogram was performed (2D, M-mode, Doppler and color flow Doppler). There is no evidence of a mass or vegetation. This does not rule out endocarditis. Would consider a transesophageal echocardiogram if clinically indicated. Left ventricular systolic function is normal. There is Doppler evidence for diastolic dysfunction. Ejection Fraction = 65-70%. There is mild mitral regurgitation. There is trace to mild tricuspid regurgitation. Would consider a transesophageal echocardiogram if clinically indicated. Final Reading Physician: Anibal Abreu signed on 07/12/2016 06:05 PM Ordering Physician: Godwin Buckley Performed By: Justine Ramirez, [facility]
[2016-07-13] MEDS: VANCOMYCIN 1 GM in NS 250 ML IV SCH (05:24)
[2016-07-13] MEDS: HYDROCODONE/APAP 5/325 TAB PO PRN ×3 (05:24→16:43)
--- NOTE | 2016-07-13 08:27 | PCMIDPN ---
Assessment/Plan: Assessment/Plan: 1. Left ankle septic arthritis: - blood cx ngtd. vanco trough at 13.3. - s/p I &d on 07/10/16. - ankle cx: discordant results. PBP positive for MRSA but susceptibilities profile showing frederick-sensitive isolate. Spoke to micro this Am. They re-ran PBP and still positive for MRSa. Repeat susceptibilities being set up. -Currently on Vanco. Will change to Daptomycin today. check cmp/cpk stat prior to dose. -Has picc line. -If ready for discharge can go home and we can follow as OP and adjust antibiotics if deemed to truly be MSSA. -will work on interagency form and coordinate with case management. -Reviewed results with patient, along with plan of care, treatment, side effects of therapy etc. -will set up f/u appt for OP. meds vanco 1g q12- Subjective: Afebrile. Feels well. Denies sob, aBd pain or diarrhea. left ankle still sore. less swelling. Objective: Vital Signs Temp Pulse Resp BP Pulse Ox 36.9 C 95 18 116/87 H 92 07/12/16 22:16 07/12/16 22:16 07/12/16 22:16 07/12/16 22:16 07/12/16 22:16 Microbiology 07/10/16 12:52 Gram Stain - Final Ankle - Eswab 07/10/16 12:50 Gram Stain - Final Ankle - Tissue Laboratory Results 07/12/16 05:40 07/11/16 14:14 07/12/16 07/13/16 07/14/16 05:59 05:59 05:59 Intake Total 850 650 Output Total 1999 3050 Balance -1150 -2400 ESR 60 MM/HR (0-30) H 07/10/16 05:10 C-Reactive Protein 43.4 mg/L (<10.0) H 07/10/16 05:10 - Physical Exam General Appearance: alert, no apparent distress Respiratory: lungs clear Cardiac/Chest: regular rate, rhythm, No systolic murmur Extremities: swelling (mild swelling at ankle-left), other (RUE picc line: no swelling) Abdomen: normal bowel sounds, non-tender, soft, No distended Skin: No erythema (left ankle: no erythema. not warm. tender to touch.) - Time Spent With Patient Time Spent with Patient: greater than 35 minutes Time Spent with Patient: Greater than 35 minutes spent on this patients care, greater than 50% of time spent counseling, educating, and coordinating care regarding the above mentioned plan. ICD10 Worksheet Patient Problems: Problems Problem Status Diagnosed Bone infection, ankle/foot Acute Left ankle effusion Acute
[2016-07-13 08:34] VITALS: BP 120/80
--- NOTE | 2016-07-13 08:38 | PDIAF ---
- Diagnosis Diagnosis: left ankle septic arthritis secondary to MRSA. Code Status: Full Code - Medication Management Discharge Medications: Medications to Continue on Transfer Ibuprofen [Motrin 200 mg (OTC)] 600 - 800 mg PO DAILY PRN 06/06/12 [Last Taken 06/04/12] Loperamide HCl [Imodium 2 mg (OTC)] 2 mg PO DAILY PRN 06/06/12 [Last Taken 05/20] Bisacodyl [Dulcolax] 5 mg PO DAILY PRN 07/10/16 [Last Taken Unknown] Calcium Carb W/Vit D [Calcium Carb W/Vit D 500/200 (*)] 1,000 mg PO DAILY [Last Taken Unknown] Estrogen,Con/M-Progest Acet [Prempro 0.3 mg-1.5 mg Tablet] 1 each PO DAILY 07/10 [Last Taken 07/09/16] Hydrocodone/Acetaminophen [[place] 5/325 (*)] 1 tab PO Q6 PRN 07/10/16 [Last Taken Unknown] Sulindac 150 mg PO BIDMEAL 07/10/16 [Last Taken Unknown] buPROPion XL [Wellbutrin Xl] 300 mg PO DAILY 07/10/16 [Last Taken 07/09/16] [facility] Antibiotics: Daptomycin 400mg IV daily. Engineer/Conductor Antibiotic Stop Date: 08/25/16 Discharge Medications: Refer to the Discharge Home Medication list for PRN reason. PICC Care - Routine: Yes - Labs/Radiology CBC Date: 07/19/16 (q mondays) CMP Date: 07/19/16 (q mondays) CRP Date: 07/19/16 (q mondays) CPK Date: 07/19/16 (q mondays) Call or Fax Lab and Imaging Results to: fax to Dr. Byrd [phone] - Follow Up Care Current Providers and Referrals: Sarahi Mustafa MD [Primary Care Provider] - As per Instructions Alejandro Byrd MD [Medical Doctor] - 07/28/16 9:00 am
[2016-07-13] MEDS: SENNOSIDES/DOCUSATE SODIUM TAB PO SCH (09:25)
[2016-07-13] MEDS: GABAPENTIN 100 MG CAP PO SCH (09:25)
[2016-07-13] MEDS: buPROPion XL 150 MG TAB PO SCH (09:25)
[2016-07-13] MEDS: ESTROGEN CON PO SCH (09:26)
[2016-07-13] MEDS: M PROGEST ACET PO SCH (09:26)
[2016-07-13] MEDS: ENOXAPARIN 40 MG/0.4 ML SYR SC SCH (09:26)
[2016-07-13 09:56] LABS: ALANINE AMINOTRANSFERASE 43 IU/L (9-52); ALBUMIN 3.4 g/dL (3.5-5.0); ALKALINE PHOSPHATASE 76 IU/L (38-126); ANION GAP 12 mEq/L (8-16); ASPARTATE AMINOTRANSFERASE 38 IU/L (14-46); BILIRUBIN,TOTAL 0.6 mg/dL (0.1-1.4); CALCIUM 8.9 mg/dL (8.5-10.4); CARBON DIOXIDE 27 mEq/l (22-31); CHLORIDE 104 mEq/L (97-110); CREATININE 0.7 mg/dL (0.6-1.0); GLOMERULAR FILTRATION RATE > 60; GLUCOSE 133 mg/dL (70-100); POTASSIUM 3.8 mEq/L (3.5-5.2); SODIUM 143 mEq/L (134-144); TOTAL PROTEIN 6.7 g/dL (6.3-8.2)
[2016-07-13] MEDS ORDERED: DAPTOmycin 400 MG in NS 100 ML IV SCH (10:00)
--- NOTE | 2016-07-13 11:17 | SOAPPROG ---
SOAP Progress Note Assessment/Plan: Assessment: septic arthritis, left ankle Plan:With continued signs of infection clinically and radiographically, along with increasing white count, I will take patient to OR this morning to flush out joint and obtain cultures/gram stain to start IV abx tx. ID has been consulted. Will follow as both in- and outpatient. Discussed risks/benefits/alternatives to surgery at bedside with patient. Patient understands and agrees to treatment. Answered questions. 07/10/16 08:21 07/11/16 07:10 Pending results of tissue and swab cx, I do not see this patient staying more than 24 hours. She is to continue NWB with knee scooter or crutches while ankle pain is resolving and infection is ruled out/confirmed. Keep dressing clean/dry/intact. I will change on 07/14/16 in office. Continue pain medication and/or NSAIDs as needed for pain. Ice and elevate as instructed. Answered questions. 07/13/16 11:14 Okay to d/c home with finalization of IV ABx and sensitivities. I would like patient to continue NWB on LLE with crutches and/or knee scooter. Patient to follow up in my office on 07/16/16. Bandage changed at bedside today. Answered questions. 07/13/16 11:16 Objective: Vital Signs Temp Pulse Resp BP Pulse Ox 36.9 C 88 17 120/80 93 07/13/16 08:33 07/13/16 08:33 07/13/16 08:33 07/13/16 08:33 07/13/16 08:33 Microbiology 07/10/16 12:52 Gram Stain - Final Ankle - Eswab 07/10/16 12:50 Gram Stain - Final Ankle - Tissue Laboratory Results 07/12/16 05:40 07/13/16 09:30 07/12/16 07/13/16 07/14/16 05:59 05:59 05:59 Intake Total 850 650 Output Total 1999 3050 Balance -1150 -2400 no ASOI; suture intact; edema markedly decrease; minimal, if any, erythema, left ankle; less pain with palp to area - Pending Discharge Pending Discharge Within 24 Hours: Yes Pending Discharge Date: 07/14/16 Pending Discharge Time: 11:00 ICD10 Worksheet Patient Problems: Problems Problem Status Diagnosed Bone infection, ankle/foot Acute Left ankle effusion Acute
[2016-07-13 16:12] VITALS: PULSE 97; RESP 14; TEMP 98.2; O2SAT 96
--- NOTE | 2016-07-14 02:41 | GDS ---
[f rep st] DISCHARGE SUMMARY DISCHARGE DIAGNOSES: 1. Left ankle septic arthritis. 2. Left ankle pain. 3. History of depression. CONSULTATIONS: 1. Dr. Warner. 2. Infectious Disease. STUDIES AND PROCEDURES DONE: 1. Lower extremity MRI. 2. PICC line placement. 3. Left ankle arthroscopy with synovectomy. PHYSICAL EXAM: GENERAL: The patient is alert. VITAL SIGNS: Afebrile 36.9, pulse is 88, respirator y rate 17, blood pressure is 120/80. She is saturating 93% on room air. I have seen and evaluated t he patient on the day of discharge. HOSPITAL COURSE: The patient is a 61-year-old female who presented to the emergency room with compla ints of left ankle pain. She was evaluated and diagnosed with: 1. Suspected septic arthritis. During this hospitalization received surgical intervention from Dr. Warner. Cultures are inconclusive at the time of disposition. She did receive a consultation fr om Infectious Disease. She will continue daptomycin in the outpatient setting with further recommend ations and management to be made with further culture sensitivities. PICC line has been placed. The patient is in agreement with outpatient IV antibiotic therapy. 2. Pain. This has been well treated with Neurontin, as well as Pella. She will continue these medi cations in the outpatient setting. 3. History of depression. The patient has no complications at this time. 4. Disposition. The patient will be discharged home independently. She will continue IV antibiotic daptomycin in the outpatient setting with home health care. Follow up will be with Dr. Warner, as well as the patient's primary care provider, Dr. Sarahi Mustafa and Dr. Byrd of Infectious Dise e on 07/28/2016 at 9:00 a.m. DISCHARGE MEDICATIONS: Neurontin, oxycodone. I have not changed any other of the patient's primary medications to the best of my knowledge. I spent greater than 35 minutes in the care, coordination, and management of this patient's dispositi on. I reviewed her case with Dr. Byrd, as well as heel caser. /[id number]/MODL
== END 2016-07-13 17:14 | disposition home health service (06) | DRG 550 ==
LOC: F3N 06:15
PROVIDERS: ADMIT Hospitalist; ATTEND Hospitalist
PROC: 0SB Lower Joints, Excision (ICD-10-PCS; principal; 2016-07-10 12:18)
PROC: 0S9G3ZX Drainage of Left Ankle Joint, Percutaneous Approach, Diagnostic (ICD-10-PCS; principal; 2016-07-10 12:18)
PROC: 02HV33Z Insertion of Infusion Device into Superior Vena Cava, Percutaneous Approach (ICD-10-PCS; 2016-07-11)
DX: M00.872 Arthritis due to other bacteria, left ankle and foot (principal); B95.61 Methicillin susceptible Staphylococcus aureus infection as the cause of diseases classified elsewhere
CPT/HCPCS: 97110-GP; 97116-GP; 97161-GP; 97165-GO; 97530-GP; C1751; J0878; J1100; J1650; J2001; J2250; J2405; J2704; J2997; J3010; J3370

== ENCOUNTER → 2017-02-16 | Outpatient (CLI) | payer OTHER | LOC: BMCIMAGING 14:25 | PROVIDERS: ATTEND Podiatrist Foot & Ankle Surgery | DX: S93.629A Sprain of tarsometatarsal ligament of unspecified foot, initial encounter (principal); X50.9XXA Other and unspecified overexertion or strenuous movements or postures, initial encounter ==

== ENCOUNTER → 2018-11-28 | Outpatient (CLI) | payer OTHER | LOC: BMCIMAGING 12:01 ==

== ENCOUNTER → 2018-12-01 | Outpatient (CLI) | payer OTHER | LOC: BMCIMAGING 10:45 ==

== ENCOUNTER → 2018-12-13 | Day surgery (SDC) | payer OTHER | LOC: FIMAGING 07:49 ==